=== PATIENT | female | born 1940 | race Caucasian/White ===

== ENCOUNTER 2019-05-30 18:55 | Inpatient (IN) | payer MEDICARE ==
[~2019-05-30] VITALS: Ht 157.5 cm; Wt 64.1 kg
--- NOTE | 2019-05-30 19:00 | NUR ---
LACTATED RINGERS 1L, WITH KCL 20MEQ INFUSING ON ARRIVAL. EDP KENENTH STATES TO CONTINUE INFUSION.
--- NOTE | 2019-05-30 19:03 | NUR ---
ABNORMAL LABS FROM [place]: WBC 21.4, LACTIC ACID 25.3, POTASSIUM 3.2, AMYLASE 1522, LIPASE 62208
--- NOTE | 2019-05-30 20:15 | NUR ---
PT SLEEPING ON BED. NO S/S OF ACUTE DISTRESS NOTED.
[2019-05-30 20:21] LABS: HEMATOCRIT 33.7 % (36.0-48.0); HEMOGLOBIN 10.9 g/dL (12-16); MCH 26.8 pg (26.0-34.0); MCHC 32.3 g/dL (31.0-37.0); MEAN PLATELET VOLUME 8.7 fL (7.4-10.4); PLATELET COUNT 335 10x3/uL (130-400); RBC 4.06 10x6/uL (4.00-5.40); RDW 14.5 % (11.5-14.5)
[2019-05-30 20:47] LABS: ANION GAP 10.3 mmol/L (8-16); CALCIUM 8.4 mg/dL (8.5-10.1); CARBON DIOXIDE 31.7 mmol/L (21.0-32.0); CREATININE - SERUM 0.9 mg/dL (0.6-1.3)
[2019-05-30 20:48] VITALS: BP 169/57
[2019-05-30 20:51] LABS: ALBUMIN 2.6 g/dL (3.4-5.0); BILIRUBIN - TOTAL 2.55 mg/dL (0.2-1.3); PROTEIN - SERUM 5.8 g/dL (6.4-8.2)
[2019-05-30 21:01] LABS: HYPOCHROMASIA 1+; LYMPHOCYTES 9 % (15-50); MONOCYTES 3 % (2-11); NEUTROPHILS 88 % (40-80); PLATELET ESTIMATE NORMAL
--- NOTE | 2019-05-30 21:45 | NUR ---
PT SLEEPING ON BED. NO S/S OF ACUTE DISTRESS NOTED.
--- NOTE | 2019-05-30 23:06 | NUR ---
SMALL, SOFT BROWN BM NOTED. PT CLEANED, NEW BRIEF PLACED ON PT.
--- NOTE | 2019-05-30 23:30 | NUR ---
ADMITTED TO ROOM FROM ER ALERT SPEECH GARBLED, ABLE TO FOLLOW DIRECTIONS, SEE ASSESSMENT, CALL LIGHT IN REACH, FALL PRECAUTIONS IN PLACE
[2019-05-31] VITALS (7 sets, daily range): BP systolic 122–147; BP diastolic 42–70; Ht 157.5 cm; Wt 64.1 kg
[2019-05-31 06:54] LABS: BASOPHILS 0.2 % (0-2); EOSINOPHILS 0.2 % (0-7); HEMATOCRIT 31.6 % (36.0-48.0); HEMOGLOBIN 9.9 g/dL (12-16); IMMATURE GRANULOCYTES 0.3 % (0-5); LYMPHOCYTES 12.3 % (15-50); MCH 26.1 pg (26.0-34.0); MCHC 31.3 g/dL (31.0-37.0); MCV 83.4 fL (80.0-100.0); MEAN PLATELET VOLUME 9.3 fL (7.4-10.4); MONOCYTES 5.4 % (2-11); NEUTROPHILS 81.6 % (40-80); PLATELET COUNT 328 10x3/uL (130-400); RBC 3.79 10x6/uL (4.00-5.40); RDW 14.6 % (11.5-14.5)
[2019-05-31 07:05] LABS: % SATURATION 16 % (15-55); IRON 35 ug/dl (35-150); TOTAL IRON BIND CAPACITY 218 ug/dl (260-445); UNSAT IRON BIND CAPACITY 183 ug/dl (150-375)
[2019-05-31 07:09] LABS: APTT 31.6 SECONDS (22.8-39.4); INR 1.24 (0.85-1.17); PROTIME 15.1 SECONDS (11.6-15.0)
[2019-05-31 07:13] LABS: WBC 11.9 10x3/uL (4.8-10.8)
--- NOTE | 2019-05-31 07:44 | NUR ---
PT RESTING IN BED WITH EYES CLOSED, BREATHING EVEN AND NONLABORED WITH NO S/S OF DISTRESS. IV LOCATED TO LEFT AC RUNNING NS @ 100. WILL CONT TO MONITOR.
[2019-05-31 07:50] LABS: ALBUMIN 2.4 g/dL (3.4-5.0); ALKALINE PHOSPHATASE 188 U/L (46-116); ALT (SGPT) 148 U/L (10-68); CALC OSMOLALITY 285 mosm/kg (275-300); CALCIUM 8.2 mg/dL (8.5-10.1); CARBON DIOXIDE 29.3 mmol/L (21.0-32.0); CHLORIDE - SERUM 106 mmol/L (98-107); CHOL - HDL RATIO 3.1 ratio (2.3-4.1); CHOLESTEROL, TOTAL 149 mg/dL (0-200); CREATININE - SERUM 0.8 mg/dL (0.6-1.3); FERRITIN 49 ng/mL (3-244); GLUCOSE 94 mg/dL (74-106); HDL CHOLESTEROL 48 mg/dL (32-96); LDL CHOLESTEROL 88 mg/dL (0-100); LDL-HDL RATIO 1.8 ratio (1.5-3.5); MAGNESIUM - SERUM 1.8 mg/dL (1.8-2.4); PHOSPHOROUS 2.9 mg/dL (2.5-4.9); POTASSIUM - SERUM 3.6 mmol/L (3.5-5.1); PROTEIN - SERUM 5.3 g/dL (6.4-8.2); SODIUM 143 mmol/L (136-145); TRIGLYCERIDE 69 mg/dL (30-200); UREA NITROGEN 14 mg/dL (7-18); eGFR NON AFRICAN AMERICAN 73 mL/min (90-120)
--- NOTE | 2019-05-31 08:43 | NUR ---
PT PULLED OUT IV, WILL RESITE TO NEW LOCATION.
--- NOTE | 2019-05-31 10:59 | NUR ---
ATTEMPTED TO START NEW IV , PT PULLED OUT IMMEDIATELY, SLAPPED AT ME AND TOLD ME TO "GO TO HELL". WILL ATTEMPT TO START ANOTHER SHORTLY AFTER PT CALMS DOWN.
--- NOTE | 2019-05-31 12:35 | NUR ---
PT HAS PORT, SPOKE W/ RAIN DESAI APN ABOUT PUTTING IN ORDER FOR ME TO ACCESS IT. WILL CONT TO MONITOR.
[2019-05-31] MEDS ORDERED: CARAFATE1 G PO (14:53)
[2019-05-31] MEDS ORDERED: SENNA LAXATIVE8.6 MG PO (14:55)
[2019-05-31] MEDS ORDERED: HYDROCHLOROTHIA25 MG PO (14:56)
[2019-05-31] MEDS ORDERED: MIRALAX17 GM PO ×2 (14:58→15:06)
[2019-05-31] MEDS ORDERED: PRENAVITE1 TAB PO (14:59)
[2019-05-31] MEDS ORDERED: K-TAB10 MEQ PO (14:59)
[2019-05-31] MEDS ORDERED: ZOFRAN4 MG PO (15:00)
[2019-05-31] MEDS ORDERED: DILTIAZEM 24HR180 M4 PO (15:03)
[2019-05-31] MEDS ORDERED: ULTRAM50 MG PO (15:04)
--- NOTE | 2019-05-31 19:47 | NUR ---
OT NOTE: PT REQUIRED MAX VERBAL CUES SECONDARY TO CONFUSION AND DECREASED SAFETY AWARENESS. PT COMPLETED BED MOB TASKS WITH SPV AND EXTENSIVE CUES FOR SAFETY. PT COMPLETED FACE WASH WITH SETUP. THANK YOU, UMER GERMAN
--- NOTE | 2019-05-31 20:00 | NUR ---
RESTING IN BED EYES CLOSED RESP UNLABORED, AROUSES EASLY TO VOICE, SPEECH GARBLED UNABLE TO UNDERSTAND, SEE SHIFT ASSESSMENT, CALL LIGHT IN REACH, FALL PRECAUTIONS IN PLACE
[2019-06-01 04:30] VITALS: BP 151/72
[2019-06-01 06:01] LABS: APPEARANCE CLEAR (CLEAR); BILIRUBIN NEGATIVE (NEGATIVE); COLOR DK YELLOW (YELLOW); GLUCOSE NEGATIVE (NEGATIVE); KETONE SMALL mg/dL (NEGATIVE); NITRITE NEGATIVE (NEGATIVE); PROTEIN 1+ mg/dL (NEGATIVE); UROBILINOGEN NORMAL (NORMAL)
[2019-06-01 06:02] LABS: BACTERIA FEW /hpf (NEGATIVE); EPITHELIAL CELLS 0-5 /hpf (0-5); RED CELLS - URINE 0-5 /hpf (0-5); WHITE CELLS - URINE 0-5 /hpf (NEGATIVE)
[2019-06-01 08:40] VITALS: BP 133/50
[2019-06-01 09:42] LABS: BASOPHILS 0.6 % (0-2); EOSINOPHILS 1.5 % (0-7); HEMATOCRIT 31.3 % (36.0-48.0); HEMOGLOBIN 9.4 g/dL (12-16); IMMATURE GRANULOCYTES 0.8 % (0-5); LYMPHOCYTES 19.4 % (15-50); MCH 25.9 pg (26.0-34.0); MEAN PLATELET VOLUME 9.3 fL (7.4-10.4); NEUTROPHILS 70.7 % (40-80); RBC 3.63 10x6/uL (4.00-5.40); RDW 14.6 % (11.5-14.5)
[2019-06-01 09:58] LABS: ALBUMIN 2.1 g/dL (3.4-5.0); ALKALINE PHOSPHATASE 133 U/L (46-116); BILIRUBIN - DIRECT 0.13 mg/dL (0.00-0.30); BILIRUBIN - INDIRECT 0.23 mg/dL (0.00-1.00); BILIRUBIN - TOTAL 0.36 mg/dL (0.2-1.3); CALC OSMOLALITY 284 mosm/kg (275-300); CARBON DIOXIDE 25.8 mmol/L (21.0-32.0); CHLORIDE - SERUM 108 mmol/L (98-107); CREATININE - SERUM 0.6 mg/dL (0.6-1.3); GLUCOSE 76 mg/dL (74-106); MAGNESIUM - SERUM 1.8 mg/dL (1.8-2.4); PHOSPHOROUS 2.6 mg/dL (2.5-4.9); POTASSIUM - SERUM 3.5 mmol/L (3.5-5.1); PROTEIN - SERUM 5.4 g/dL (6.4-8.2); SODIUM 143 mmol/L (136-145); UREA NITROGEN 16 mg/dL (7-18); eGFR NON AFRICAN AMERICAN > 90 mL/min (90-120)
[2019-06-01 10:00] LABS: ALT (SGPT) 78 U/L (10-68); LIPASE 1012 U/L (73-393)
[2019-06-01 10:02] LABS: MCV 86.2 fL (80.0-100.0); PLATELET COUNT 239 10x3/uL (130-400); WBC 6.6 10x3/uL (4.8-10.8)
--- NOTE | 2019-06-01 11:59 | MORECARE ---
CASE MANAGEMENT DISCHARGE SUMMARY PATIENT: OLIVER CARBONE UNIT: [id number] ADM DATE: 05/30/19 AGE: 78 : 38 SEX: F ROOM/BED: D.2201 AUTHOR: KIMBERLEY GOLDBERG PHYSICIAN: REFERRING PHYSICIAN: CHARITY DAMIAN MD DATE OF SERVICE: 06/01/19 Discharge Plan Patient Name: OLIVER CARBONE Facility: [facility]:[place] : 1940 Planned Disposition: Nursing Facility [facility] Cert Anticipated Discharge Date: Discharge Date: Expected LOS: Initial Reviewer: [email or web address] Initial Review Date: 05/30/2019 Generated: 06/01/19 12:59 pm Comments DCP- Discharge Planning Updated by [email or web address]: Alida Madden on 06/01/19 10:[address] Patient Name: OLIVER CARBONE Admission Status: ER Accout number: [id number] Admission Date: 05-30-2019 : 1940 Admission Diagnosis: Attending: CHARITY ALVARADO Current LOS: 2 Anticipated DC Date: Planned Disposition: Nursing Facility [facility] Cert Primary Insurance: MEDICARE A & B Discharge Planning Comments: Patient was a transfer for a higher level of care from [facility]. She is a resident at [facility] where I anticipate her to be discharged back there when stable. Patient is unable to answer questions for me. I received her sister's number from the nurse. Mary Ann [phone]. CM will attempt to call her for DC planning. Box Repairer: Alida Madden DCPIA - Discharge Planning Initial Assessment Updated by [email or web address]: Alida Madden on 06/01/19 11:56 am * PCP [facility] in [place] * Pharmacy [facility] in [place] * Facility Name [facility] in [place] * ADLs Total Dependent * List name and contact numbers for known caregivers / representatives who currently or will assist patient after discharge: Mary Ann (sister) [phone] * Additional services required to return to the preadmission environment? No * Can the patient safely return to the preadmission environment? Yes Patient Name: OLIVER CARBONE Page [id number] at 1159 All edits/amendments must be made on the electronic document DICTATION DATE: 06/01/191158 SANDBLASTER PAINT SPRAYER: RONEN 06/01/19 115 RPT#: [id number] DC DATE: STATUS: ADM IN [facility] [address] [place] [address] END OF REPORT
[2019-06-01 12:40] VITALS: BP 132/58
--- NOTE | 2019-06-01 13:55 | NUR ---
CALLED ENA. PATIENTS SISTER TO GET DANIELLE BLACKWELL [facility] PHONE NUMBER SINCE NONE OF OUR PAPERWORK HAS THE PHONE NUMBER. ATTEMPTING TO CALL RISHI NOW. NO RESPONSE. WILL TRY AGAIN LATER.
--- NOTE | 2019-06-01 14:34 | NUR ---
RISHI DAILEY Cam NUMBER IS [phone]. NUMBER ATTAINED FROM [facility]. CONSENT OBTAINED VERBALLY BY MYSELF AND Caty LYNN LPN.
--- NOTE | 2019-06-01 15:12 | NUR ---
OT NOTE: ATTEMPTED BED MOB, HOWEVER, PT UNABLE TO FOLLOW COMMANDS. PT HAD BEEN GETTING OUT OF BED MOST OF THE DAY YESTERDAY, BUT PT APPEARS FEARFUL AND SHE IS CONFUSED, SO SHE IS RESISTANT TO ATTEMPTS TO MOVE. UNABLE TO PERFORM GROOMING TASKS. PT IS INCONT OF B AND B. SUN BORJAS, OTR/L
--- NOTE | 2019-06-01 15:42 | NUR ---
OT NOTE: PT REQUIRED MAX A WITH BED MOB BUT IS ABLE TO FUNCTION AT A HIGHER LEVEL. PT EXHIBITED DECREASED FUNCTION SECONDARY TO COG ISSUES. PT COMPLETED UB HYGIENE TASKS WITH MOD A. THANK YOU, UMER GERMAN
[2019-06-01 16:06] VITALS: BP 143/53
--- NOTE | 2019-06-01 19:51 | NUR ---
PATIENT IN BED RESTING ALERT WITH CONFUSION NOTED. POSIE ALARM IN PLACE . NS RUNNING AT 125ML/HR TO RIGHT INFUSEA PORT. O2 AT 2L VIA N/C. CALL LIGHT IN REACH. NO NEEDS NOTED OR STATED AT THIS TIME.
[2019-06-01 20:00] VITALS: BP 135/55
--- NOTE | 2019-06-01 22:56 | NUR ---
NO TELEMETRY AVAILABLE AT THIS TIME
[2019-06-02] VITALS (9 sets, daily range): BP systolic 130–171; BP diastolic 43–76
[2019-06-02 06:06] LABS: BASOPHILS 0.5 % (0-2); EOSINOPHILS 3.5 % (0-7); HEMATOCRIT 31.6 % (36.0-48.0); HEMOGLOBIN 9.8 g/dL (12-16); LYMPHOCYTES 21.8 % (15-50); MCH 26.1 pg (26.0-34.0); MCV 84.3 fL (80.0-100.0); MEAN PLATELET VOLUME 9.4 fL (7.4-10.4); MONOCYTES 8.4 % (2-11); NEUTROPHILS 64.8 % (40-80); RBC 3.75 10x6/uL (4.00-5.40); RDW 14.3 % (11.5-14.5); WBC 5.9 10x3/uL (4.8-10.8)
[2019-06-02 06:09] LABS: PLATELET COUNT 299 10x3/uL (130-400)
[2019-06-02 06:35] LABS: ALBUMIN 2.3 g/dL (3.4-5.0); ALKALINE PHOSPHATASE 125 U/L (46-116); ALT (SGPT) 61 U/L (10-68); BILIRUBIN - DIRECT 0.17 mg/dL (0.00-0.30); BILIRUBIN - TOTAL 0.37 mg/dL (0.2-1.3); CALCIUM 7.9 mg/dL (8.5-10.1); CARBON DIOXIDE 23.7 mmol/L (21.0-32.0); CHLORIDE - SERUM 104 mmol/L (98-107); CREATININE - SERUM 0.6 mg/dL (0.6-1.3); GLUCOSE 72 mg/dL (74-106); PHOSPHOROUS 2.8 mg/dL (2.5-4.9); POTASSIUM - SERUM 3.8 mmol/L (3.5-5.1); PROTEIN - SERUM 5.2 g/dL (6.4-8.2); SODIUM 139 mmol/L (136-145); eGFR NON AFRICAN AMERICAN > 90 mL/min (90-120)
[2019-06-02 06:37] LABS: CALC OSMOLALITY 275 mosm/kg (275-300); UREA NITROGEN 9 mg/dL (7-18)
--- NOTE | 2019-06-02 16:07 | NUR ---
PT RECEIVED. TO ICU AT THIS TIME. VSS. PT ON 4L NC SAT 96% RR 16 NON LABORED. PT CONFUSED X2. FAMILY AT BEDSIDE GIVEN UDPATE. HR 56 SINUS FRANKLYN. BP 114/67 WILL CONTINUE TO MONITO R
--- NOTE | 2019-06-02 18:00 | NUR ---
PT DEMENTED AT THIS TIME. NO FAMILY IN WAITING AREA. PT REMOVING ICU EQUIPMENT ATTEMPT TO REORIENT WITH NO AFFECT. PT ON RA O2 SAT 98% RR 16 NON LABORED.PT BEGGING NOT TO BE LEFT ALONE AT THIS TIME. PT UP OOB TO WHEELCHAIR AND PLACED AT NURSES STATION, PT PREOCCUPIED WITH FOLDING TOWELS AT WASHCLOTHES AT THIS TIME. WILL CONTINUE TO MONITOR
--- NOTE | 2019-06-02 19:00 | NUR ---
REPORT REC'D, ASSUMED PT'S CARE. ASSESSMENT COMPLETED PER FLOWSHEETS. PT SITTING IN WHEELCHER AT NURSING STATION, DENIES ANY DISCOMFORT AT THIS TIME. ABD INCISION INTACT. JPDRAIN INTACT. PPP. WILL CONT TO MONITOR.
--- NOTE | 2019-06-02 20:20 | NUR ---
TRANSF PT FROM CHAIR TO BED. PT WILLIAM WELL. STERILE PROCESSING TECHNICIAN ATTACHED. PT CONT CONFUSED. REORIENTED WITHOUT RESULTS. BED ALARM ON. CALL LIGHT IN REACH. CPOC.
--- NOTE | 2019-06-02 21:00 | NUR ---
ASSISSTED TO BSC, VOIDS WITHOUT DIFFIC. PT WILLIAM WELL.
--- NOTE | 2019-06-02 23:00 | NUR ---
REASSESSMENT COMPLETED,SEE FLOWSHEATHS FOR ALL FINDINGS. NO ACUTE CHANGES NOTED IN PT'S STATUS. VSS. CONT TO MONITOR.
[2019-06-03] VITALS (19 sets, daily range): BP systolic 55–161; BP diastolic 46–100
--- NOTE | 2019-06-03 01:00 | NUR ---
PT INCONTINENT OF URINE. KENNETH CARE AND BED PAD CHANGED. REPOSITIONED FOR COMFORT. BED ALARM ON. CPOC.
--- NOTE | 2019-06-03 02:10 | NUR ---
ASSITED TO BSC, PT VOIDS WITHOUT DIFFIC. BACK TO BED. BED ALARM ON. CALL LIGHT IN REACH. CPOC.
--- NOTE | 2019-06-03 03:00 | NUR ---
REASSESSMENT COMPLETED PER FLOWSHEETS. NO ACUTE SIGNS OF DISTRESS NOTED AT THIS TIME. VSS. CPOC.
--- NOTE | 2019-06-03 03:15 | NUR ---
REC'D TO CARE, NO CHANGES FROM PREV ASSESSMENT. PT PLESANTLY CONFUSED, VSS. NO SIGN OF DISTRESS. ALARMS ON .
[2019-06-03 03:17] LABS: BASOPHILS 0.3 % (0-2); EOSINOPHILS 1.9 % (0-7); HEMATOCRIT 30.2 % (36.0-48.0); HEMOGLOBIN 9.6 g/dL (12-16); IMMATURE GRANULOCYTES 0.6 % (0-5); LYMPHOCYTES 11.5 % (15-50); MCH 26.2 pg (26.0-34.0); MCHC 31.8 g/dL (31.0-37.0); MCV 82.5 fL (80.0-100.0); MONOCYTES 6.3 % (2-11); NEUTROPHILS 79.4 % (40-80); PLATELET COUNT 312 10x3/uL (130-400); RBC 3.66 10x6/uL (4.00-5.40); RDW 14.2 % (11.5-14.5)
[2019-06-03 03:20] LABS: WBC 9.3 10x3/uL (4.8-10.8)
[2019-06-03 03:35] LABS: ANION GAP 12.4 mmol/L (8-16); CALCIUM 8.4 mg/dL (8.5-10.1); MAGNESIUM - SERUM 1.6 mg/dL (1.8-2.4); PHOSPHOROUS 2.5 mg/dL (2.5-4.9); POTASSIUM - SERUM 3.4 mmol/L (3.5-5.1)
[2019-06-03 03:36] LABS: CREATININE - SERUM 0.8 mg/dL (0.6-1.3)
--- NOTE | 2019-06-03 06:15 | NUR ---
COMPLETE BATH AND LINEN CHANGE DONE. PT UP IN CHAIR WITH CHAIR ALARM ON. ALARMS ON AND C/L IN REACH.
--- NOTE | 2019-06-03 07:00 | NUR ---
PT SITTING IN WHEELCHAIR AT BEDSIDE. SHIFT ASSESSMENT PERFORMED. VSS AND WNL. CHAIR ALARM ON AND TESTED. DENIES ANY NEEDS AT THIS TIME, WILL CONT TO FOLLOW POC
--- NOTE | 2019-06-03 08:04 | NUR ---
PT TRYING TO STAND UP OUT OF WHEELCHAIR. PUSHED PT AROUND ICU IN WHEELCHAIR AND RETURNED PT TO HER ROOM. PT CALM AND FOLDING WASHCLOTHS ON HER BEDSIDE TABLE. DENIES ANY NEEDS AT THIS TIME, CHAIR ALARM ON AND TESTED. WILL CONT TO FOLLOW POC
--- NOTE | 2019-06-03 08:52 | NUR ---
Nutrition follow-up: Pt s/p lap antonino 06/02, ERCP was scheduled for 06/03 Remains NPO x 6 days Labs reviewed Wt: 141# Pt confused per nursing due to dementia Pt now assessed with severe malnutrition of acute illness R/T pancreatitis AEB: 1. < 50% intake of estimated energy needs for > 5 days 2. ~7% weight loss in 6 days (152# on admit - now 141#) Recommend starting ProcalAmine PPN today @ 60 ml/hr due to severe malnutrition. Would continue to run ProcalAmine even if diet resumes due to pts debilitated state. RDN following.
--- NOTE | 2019-06-03 09:55 | NUR ---
PT SITTING IN WHEELCHAIR AT BEDSIDE FOLDING WASHCLOTHS. DENIES ANY NEEDS AT THIS TIME. CHAIR ALARM ON AND TESTED. WILL CONT TO FOLLOW POC
--- NOTE | 2019-06-03 10:30 | NUR ---
ASSISTED PT TO BEDSIDE COMMODE AND BACK TO WHEELCHAIR. DENIES ANY NEEDS AT THIS TIME, CHAIR ALARM ON. WILL CONT TO FOLLOW POC
--- NOTE | 2019-06-03 11:00 | NUR ---
PT SITTING IN WHEELCHAIR AT NURSING STATION FOLDING WASHCLOTHS. CHAIR ALARM ON. DENIES ANY NEEDS AT THIS TIME, WILL CONT TO FOLLOW POC
--- NOTE | 2019-06-03 13:00 | NUR ---
PT SITTING IN WHEELCHAIR AT NURSING STATION FOLDING WASHCLOTHS. CHAIR ALARM ON AND TESTED. DENIES ANY NEEDS AT THIS TIME, WILL CONT TO FOLLOW POC
--- NOTE | 2019-06-03 14:00 | NUR ---
ASSISTED PT TO BEDSIDE COMMODE AND BACK TO CHAIR. CHAIR ALARM ON AND TESTED. DENIES ANY NEEDS AT THIS TIME. CALL LIGHT WITHIN REACH. WILL CONT TO FOLLOW POC
--- NOTE | 2019-06-03 15:00 | NUR ---
PT TRANSFERRED INTO BED X1 ASSIST. BED ALARM ON AND TESTED. VSS AND WNL. DENIES ANY NEEDS AT THIS TIME, WILL CONT TO FOLLOW POC
--- NOTE | 2019-06-03 15:19 | NUR ---
PT LEFT FOR ERCP
--- NOTE | 2019-06-03 16:29 | NUR ---
FLUORO TIME: 47 SECONDS. CONTRAST: 5 ML
--- NOTE | 2019-06-03 17:00 | NUR ---
PT RETURNED TO ICU FROM ERCP. VSS AND WNL. BED ALARM ON AND TESTED. WILL CONT TO FOLLOW POC
--- NOTE | 2019-06-03 17:15 | NUR ---
PT RESTING IN BED, VSS AND WNL. BED ALARM ON AND TESTED. DENIES ANY NEEDS AT THIS TIME, WILL CONT TO FOLLOW POC
--- NOTE | 2019-06-03 17:30 | NUR ---
PT RESTING IN BED ASLEEP. VSS AND WNL. BED ALARM ON. WILL CONT TO FOLLOW POC
--- NOTE | 2019-06-03 17:38 | NUR ---
PER , OK FOR PT TO TRANSFER TO FLOOR
--- NOTE | 2019-06-03 17:45 | NUR ---
PT RESTING IN BED ASLEEP. VSS AND WNL. BED ALARM ON AND TESTED. [facility] PT CAN TRANSFER TO ROOM 2226.
--- NOTE | 2019-06-03 18:00 | NUR ---
REPORT CALLED TO MED SURG. PT RESTING IN BED ASLEEP. VSS AND WNL. BED ALARM ON AND TESTED. WILL CONT TO FOLLOW POC
--- NOTE | 2019-06-03 19:15 | NUR ---
PT ARRIVED ON UNIT VIA WHEELCHAIR ESCORTED BY 2 ICU NURSES. POSITIONED IN FIORDALIZA BED FOR COMFORT AND SECURED ALL FLAPS.
--- NOTE | 2019-06-03 19:15 | NUR ---
TRANSFERRED FROM ICU VIA WHEELCHAIR. POA: RISHI ELIZABETHAR [phone] (CELL) [phone] (BUINESS - CALL 1ST DURING BUSINESS HOURS)
--- NOTE | 2019-06-03 20:59 | NUR ---
RE-STARTED IV FLUIDS PER ORDER. HS MEDICATIONS GIVEN TO INCLUDE TRAMADOL, PT C/O ABDOMINAL PAIN.
--- NOTE | 2019-06-03 21:10 | NUR ---
ALL LINENS AND GOWN CHANGED DUE TO INCONTINENCE OF URINE.
[2019-06-04 00:57] VITALS: BP 117/69
--- NOTE | 2019-06-04 04:45 | NUR ---
MARISABEL BLOOD FROM [facility] FOR AM LABS AND DELIVERED TO PIPE SMOKING MACHINE OPERATOR.
[2019-06-04 05:00] VITALS: BP 130/41
[2019-06-04 06:16] LABS: BASOPHILS 0.5 % (0-2); EOSINOPHILS 6.4 % (0-7); HEMATOCRIT 28.4 % (36.0-48.0); HEMOGLOBIN 8.9 g/dL (12-16); IMMATURE GRANULOCYTES 0.6 % (0-5); MCH 26.2 pg (26.0-34.0); MCHC 31.3 g/dL (31.0-37.0); MCV 83.5 fL (80.0-100.0); MEAN PLATELET VOLUME 9.2 fL (7.4-10.4); MONOCYTES 10.1 % (2-11); NEUTROPHILS 68.4 % (40-80); PLATELET COUNT 277 10x3/uL (130-400); RDW 14.6 % (11.5-14.5)
[2019-06-04 06:23] LABS: WBC 6.2 10x3/uL (4.8-10.8)
--- NOTE | 2019-06-04 06:24 | NUR ---
PT RESTED WELL OVERNIGHT EXCEPT YELLED AND RESISTED CARE WHEN SHE NEEDED CHANGED DUE TO INCONTINENCE.
[2019-06-04 06:38] LABS: CALC OSMOLALITY 274 mosm/kg (275-300); CALCIUM 7.8 mg/dL (8.5-10.1); CHLORIDE - SERUM 104 mmol/L (98-107); CREATININE - SERUM 0.6 mg/dL (0.6-1.3); GLUCOSE 85 mg/dL (74-106); MAGNESIUM - SERUM 1.7 mg/dL (1.8-2.4); PHOSPHOROUS 2.9 mg/dL (2.5-4.9); SODIUM 140 mmol/L (136-145); eGFR NON AFRICAN AMERICAN > 90 mL/min (90-120)
[2019-06-04 06:43] LABS: UREA NITROGEN 3 mg/dL (7-18)
--- NOTE | 2019-06-04 07:10 | NUR ---
PT RESTING IN BED. NO SIGNS OF DISTRESS. IV TO PORT NO REDNESS OR TENDERNESS. IN FIORDALIZA BED. SIDE OPEN TO FOR FAMILY STATED IF PT TRIED GETTING UP NEEDED TO CLOSE SIDE. STATED UNDERSTOOD. DENIES ANY FURTHER NEED AT THIS TIME. CALL LIGHT IN REACH. BED LOW POSITION.
[2019-06-04 08:17] VITALS: BP 137/59
[2019-06-04 08:26] LABS: ALBUMIN 2.3 g/dL (3.4-5.0); BILIRUBIN - DIRECT 1.27 mg/dL (0.00-0.30); BILIRUBIN - INDIRECT 0.4 mg/dL (0.00-1.00); BILIRUBIN - TOTAL 1.67 mg/dL (0.2-1.3); PROTEIN - SERUM 5.3 g/dL (6.4-8.2)
--- NOTE | 2019-06-04 11:54 | MORECARE ---
CASE MANAGEMENT DISCHARGE SUMMARY PATIENT: OLIVER CARBONE UNIT: [id number] ADM DATE: 05/30/19 AGE: 78 : 38 SEX: F ROOM/BED: D.2226 AUTHOR: KIMBERLEY GODLBERG PHYSICIAN: REFERRING PHYSICIAN: CHARITY DAMIAN MD DATE OF SERVICE: 06/04/19 Discharge Plan Patient Name: OLIVER CARBONE [facility] : 1940 Planned Disposition: Nursing Facility [facility] Cert Anticipated Discharge Date: Discharge Date: Expected LOS: Initial Reviewer: [email or web address] Initial Review Date: 05/30/2019 Generated: 06/04/19 12:54 pm Comments DCP- Discharge Planning Updated by [email or web address]: Abbey Rodriguez on 06/04/19 10:[address] Patient Name: OLIVER CARBONE Admission Status: ER Accout number: [id number] Admission Date: 05-30-2019 : 1940 Admission Diagnosis: Attending: CHARITY ALVARADO Current LOS: 5 Anticipated DC Date: Planned Disposition: Nursing Facility [facility] Cert Primary Insurance: MEDICARE A & B Discharge Planning Comments: SPOKE WITH LOYDA RN AT [facility] IN [place] ABOUT PATIENT POSSIBLY DC TODAY. LOYDA SPOKE WITH HER DON AND THEY CAN'T ACCEPT PATIENT'S BACK OVER THE WEEKEND. THE DON WILL BE CALLING US THURSDAY TO SET UP TRANSPORT FOR THE PATIENT IF READY TO DC. [facility] HOME PHONE NUMBER IS [phone]. Forensic Audit Expert: Abbey Rodriguez DCP- Discharge Planning Updated by [id number]: Alida Madden on 06/01/19 10:[address] Patient Name: OLIVER CARBONE Admission Status: ER Accout number: [id number] Admission Date: 05-30-2019 : 1940 Admission Diagnosis: Attending: CHARITY ALVARADO Current LOS: 2 Anticipated DC Date: Planned Disposition: Nursing Facility [facility] Cert Primary Insurance: MEDICARE A & B Discharge Planning Comments: Patient was a transfer for a higher level of care from [facility]. She is a resident at [facility] where I anticipate her to be discharged back there when stable. Patient is unable to answer questions for me. I received her sister's number from the nurse. Mary Ann [phone]. CM will attempt to call her for DC planning. Forensic Audit Expert: Alida Madden DCPIA - Discharge Planning Initial Assessment Updated by [id number]: Alida Madden on 06/01/19 11:56 am * PCP [facility] in [place] * Pharmacy [facility] in [place] * Facility Name [facility] in [place] * ADLs Total Dependent * List name and contact numbers for known caregivers / representatives who currently or will assist patient after discharge: Mary Ann (sister) [phone] * Additional services required to return to the preadmission environment? No * Can the patient safely return to the preadmission environment? Yes Last DP export: 06/01/19 10:59 Patient Name: OLIVER CARBONE Page [id number] at 1154 All edits/amendments must be made on the electronic document DICTATION DATE: 06/04/19 115 SOCIALLY RESPONSIBLE INVESTMENT ADVISER: RONEN 06/04/19 1154 RPT#: [id number] DC DATE: STATUS: ADM IN [facility] [address] [place] [address] END OF REPORT
[2019-06-04 12:00] VITALS: BP 120/78
--- NOTE | 2019-06-04 13:11 | NUR ---
PATIENT ALVARO DRAIN REMOVED WITH SMALL AMOUNT OF PAIN AT THIS TIME. DRESSING PLACED OVER DRAIN SITE. ENCLOSURE BED ZIPPED BACK UP. PATIENT IV INTACT. CALL LIGHT WITHIN REACH.
--- NOTE | 2019-06-04 15:22 | NUR ---
DISCHARGE INSTRUCTIONS GIVEN. IV DEACCESSED BY RN. LEFT WITH HOSPITAL STAFF TO GO TO INPATIENT PSYCH.
--- NOTE | 2019-06-05 11:48 | CN ---
PATIENT NAME:OLIVER CARBONE MEDICAL RECORD: [id number] : [birth year] LOCATION:D.MS [address] ADMIT DATE: 05/30/19 ACCOUNT: [id number] CONSULTING PHYSICIAN: TIFF DESAI MD REFERRING PHYSICIAN: CHARITY DAMIAN MD DATE OF CONSULTATION: 06/04/2019 PSYCHIATRIC CONSULTATION IDENTIFYING DATA: The patient is 78 years old and she is admitted to the hospital on a voluntary basis. CHIEF COMPLAINT: None. HISTORY OF PRESENT ILLNESS: The patient was referred to us by the [facility]. Apparently, she had chololithiasis, pancreatitis and a urinary tract infection. She was transferred here for a higher level of care. The patient has been treated for these conditions and is scheduled to be returned to the [facility] soon. Unfortunately, she has become seriously confused and agitated. She is currently in a [place] bed and has been very disruptive and is only oriented to person. MENTAL STATUS EXAMINATION: The patient is sleepy, but arousable. She is extremely confused and again only oriented to person. She is unable to cooperate with memory, concentration, or abstraction testing, but clearly they are impaired. ASSESSMENT: Major neurocognitive disorder of the Alzheimer's type with behavioral disturbances. PLAN: The patient is in need of behavioral stabilization. I would recommend she be transferred to the behavioral unit as soon as it is practical to do so. TRANSINT:[id number] Voice Confirmation ID: [id number] DOCUMENT ID: [id number] TIFF DESAI MD at 1148 CC: [id number] DICTATION DATE: 06/04/19 1336 METAL LEAF LAYER: 06/04/19 1420 DIS IN 06/04/19 [facility] [address] [place] [address]
--- NOTE | 2019-06-05 14:37 | MORECARE ---
CASE MANAGEMENT DISCHARGE SUMMARY PATIENT: OLIVER CARBONE UNIT: [id number] ADM DATE: 05/30/19 AGE: 78 : 38 SEX: F ROOM/BED: D.2226 AUTHOR: KIMBERLEY GOLDBERG PHYSICIAN: REFERRING PHYSICIAN: CHARITY DAMIAN MD DATE OF SERVICE: 06/05/19 Discharge Plan Patient Name: OLIVER CARBONE Facility: [facility]:[place] : 1940 Planned Disposition: Nursing Facility [facility] Cert Anticipated Discharge Date: Discharge Date: 06/04/2019 Expected LOS: Initial Reviewer: [id number] Initial Review Date: 05/30/2019 Generated: 06/05/19 3:36 pm Comments DCP- Discharge Planning Updated by [id number]: Abbey Rodriguez on 06/05/19 1:[address] Patient Name: OLIVER CARBONE Encounter No: [id number] : 1940 Primary Insurance: MEDICARE A & B Anticipated DC Date: Planned Disposition: Nursing Facility [facility] Cert External Planned Provider: : DCP follow-up note: PATIENT WAS ADMITTED TO [facility] AND I BELIEVE THE PLAN IS TO DC TO [facility] ON THURSDAY. Abbey Rodriguez DCP- Discharge Planning Updated by [email or web address]: Abbey Rodriguez on 06/04/19 10:[address] Patient Name: OLIVER CARBONE Admission Status: ER Accout number: [id number] Admission Date: 05-30-2019 : 1940 Admission Diagnosis: Attending: CHARITY ALVARADO Current LOS: 5 Anticipated DC Date: Planned Disposition: Nursing Facility [facility] Cert Primary Insurance: MEDICARE A & B Discharge Planning Comments: ANN SPOKE WITH REED SCALES AT [facility] IN [place] ABOUT PATIENT POSSIBLY DC TODAY. LOYDA SPOKE WITH HER DON AND THEY CAN'T ACCEPT PATIENT'S BACK OVER THE WEEKEND. THE DON WILL BE CALLING US THURSDAY TO SET UP TRANSPORT FOR THE PATIENT IF READY TO DC. [facility] PHONE NUMBER IS [phone]. Inspectors And Regulatory Officers: Abbey Rodriguez DCP- Discharge Planning Updated by [id number]: Alida Madden on 06/01/19 10:[address] Patient Name: OLIVER CARBONE Admission Status: ER Accout number: [id number] Admission Date: 05-30-2019 : 1940 Admission Diagnosis: Attending: CHARITY ALVARADO Current LOS: 2 Anticipated DC Date: Planned Disposition: Nursing Facility [facility] Primary Insurance: MEDICARE A & B Discharge Planning Comments: Patient was a transfer for a higher level of care from [facility]. She is a resident at [facility] where I anticipate her to be discharged back there when stable. Patient is unable to answer questions for me. I received her sister's number from the nurse. Mary Ann [phone]. CM will attempt to call her for DC planning. Inspectors And Regulatory Officers: Alida Madden DCPIA - Discharge Planning Initial Assessment Updated by [id number]: Alida Madden on 06/01/19 11:56 am * PCP [facility] in [place] * Pharmacy [facility] in [place] * Facility Name [facility] in [place] * ADLs Total Dependent * List name and contact numbers for known caregivers / representatives who currently or will assist patient after discharge: Mary Ann (sister) [phone] * Additional services required to return to the preadmission environment? No * Can the patient safely return to the preadmission environment? Yes Coverage Notice Reviewer: [id number] Melissa Rodriguez Notice Issued Date-Time: 06/04/2019 14:06 Notice Type: IM Discharge Notice Notice Delivered To: Family Member Relationship to Patient: Plugging Machine Operator Name: JUSTYN MOORE Delivery Method: HAND - Hand Delivered Ling Days: Prior Verbal Notification: Recipient Understood Notice: Yes Recipient Signature: Yes Med Rec Note Co-signed by Attending: Coverage Notice Comment: Last DP export: 06/04/19 10:54 Patient Name: OLIVER CARBONE Page 12132 at 1437 All edits/amendments must be made on the electronic document DICTATION DATE: 06/05/191435 SOLAR PHOTOVOLTAIC DESIGNER: RONEN 06/05/191435 RPT#: [id number] DC DATE:06/04/19 STATUS: DIS IN [place] [address] [place] [address] END OF REPORT
--- NOTE | 2019-06-14 13:37 | OP ---
PATIENT NAME: OLIVER CARBONE MEDICAL RECORD: [id number] :36 LOCATION:D.MS Orellana2226 ADMISSION DATE:05/30/19 SURGEON: MACK RODRIGUEZ MD DATE OF OPERATION: 06/02/2019 PREOPERATIVE DIAGNOSES: 1. Gallstone pancreatitis. 2. Dementia. 3. Acute cholecystitis. 4. Coronary artery disease. POSTOPERATIVE DIAGNOSES: 1. Gallstone pancreatitis. 2. Dementia. 3. Acute cholecystitis. 4. Coronary artery disease. PROCEDURE: 1. Laparoscopic cholecystectomy with intraoperative cholangiogram. 2. Fluoroscopic interpretation. SURGEON: Mack Rodriguez MD REPORT OF PROCEDURE: The patient's abdomen was prepped and draped in sterile fashion. A cutdown was made on the superior aspect of the umbilicus, 0 Vicryls were placed in the fascia bilaterally and the fascia was incised with 15-blade. I then bluntly entered the peritoneal cavity and placed a 12-mm Svetlana port. Under direct visualization, a 5 mm trocar was placed in the epigastrium and 2 more 5-mm trocars were placed in the right subcostal region. The gallbladder was grasped and elevated. It was noted to be distended and there was some acute inflammatory changes present near the infundibulum. We were able to dissect out the cystic duct and cystic artery. We placed clips on the duct proximally and made a ductotomy. We attempted to pass a cook cholangiocath and the first couple of passes actually went through the back wall of the cystic duct. We eventually were able to cannulate the cystic duct and performed an intraoperative cholangiogram. Using fluoroscopic guidance, we could see that there was contrast flowing through the cystic duct into the common duct and up into the hepatic ducts. There was no evidence of a leak anywhere and there was flow into the duodenum. There was a filling defect present near the ampulla, which appeared to be most consistent with a stone. We attempted to irrigate this out, but it did not move, so we discontinued this portion of the procedure. At this point, the catheter was removed and the cystic duct was clipped 3 times distally and ligated in standard fashion. The cystic artery was clipped proximally and distally and ligated then the gallbladder was taken off the liver bed using electrocautery. This was placed into an Endo Catch bag. Any bleeding from the liver bed was then treated with electrocautery. A 15 round Vikram drain was inserted through the right lateral subcostal trocar and laid to rest near the gallbladder fossa. This was sutured into place with a 2-0 nylon. At this point, the ports and insufflation were then removed and the gallbladder was taken out through the umbilicus. The umbilical fascia was closed with interrupted 0 Vicryls times 3. The wounds were then irrigated out with normal saline and infused with 10 mL of 0.25% Marcaine with epinephrine. The skin incision was closed with subcutaneous 5-0 Monocryl and dressed appropriately. COMPLICATIONS: None. OPERATIVE REPORT [id number] OLIVER CARBONE CONDITION: Stable. ANESTHESIA: General endotracheal and local. BLOOD LOSS: 30 mL. TRANSINT:[id number] Voice Confirmation ID: [id number] DOCUMENT ID: [id number] MACK RODRIGUEZ MD at 1337 CC: CHARITY DAMIAN MD and ANDI VIRGEN DO [id number] DICTATION DATE: 06/02/19 1439 BAND MACHINE OPERATOR: 06/02/19 1717 DIS IN 06/04/[address] [facility] [address] [place] [address]
== END 2019-06-04 15:24 | disposition short-term general hospital (02) | DRG 417 ==
LOC: D.ER 18:55 → D.MS 21:19 → D.ICU 21:19 → D.MS 06-03 19:13
PROVIDERS: Family Medicine; Surgery; ADMIT Family Medicine Adult Medicine; ATTEND Family Medicine Adult Medicine
PROC: 0FT44ZZ Resection of Gallbladder, Percutaneous Endoscopic Approach (ICD-10-PCS; principal; 2019-06-02 13:00)
DX: K85.10 Biliary acute pancreatitis without necrosis or infection (principal); K83.1 Obstruction of bile duct; N39.0 Urinary tract infection, site not specified; K83.09 Other cholangitis; K91.86 Retained cholelithiasis following cholecystectomy; I10 Essential (primary) hypertension; I25.10 Atherosclerotic heart disease of native coronary artery without angina pectoris; F03.90 Unspecified dementia, unspecified severity, without behavioral disturbance, psychotic disturbance, mood disturbance, and anxiety

== ENCOUNTER 2019-06-04 14:06 | Inpatient (IN) | payer MEDICARE ==
[~2019-06-04] VITALS: Ht 157.5 cm; Wt 69.1 kg
--- NOTE | ~2019-06-04 | DS ---
PATIENT:OLIVER CARBONE :[birth year] MEDICAL RECORD: [id number] DISCHARGE SUMMARY ADMISSION DATE: 06/04/19 DISCHARGE DATE: 06/15/19 IDENTIFYING DATA: The patient is 78 years old and she was admitted to the hospital on a voluntary basis because of agitation. The patient recently was admitted to the hospital secondary to cholelithiasis. She had been living in a custodial in [place], [place] and was transferred here for a higher level of care. She has an established diagnosis of dementia and after her surgery, she was quite confused, agitated, and unmanageable. She was subsequently transferred to the behavioral unit for evaluation and treatment. HOSPITAL COURSE: The patient was admitted to the behavioral unit and fully evaluated from both a medical, psychological, and social standpoint. She was found to have an advanced dementia and was treated with memory enhancing and mood stabilizing medications. She showed rapid improvement in her condition and was subsequently returned to the custodial. DISCHARGE DIAGNOSES: AXIS I: Major neurocognitive disorder of the Alzheimer's type with behavioral disturbances. AXIS II: None. AXIS III: Cholelithiasis, pancreatitis, non-Hodgkin's lymphoma, and hypertension. AXIS IV: Moderate. AXIS V: Global assessment of functioning is 30. PLAN: At the time of discharge, the patient was not acutely dangerous to herself or others. Her long-term prognosis is guarded. TRANSINT:[id number] Voice Confirmation ID: [id number] DOCUMENT ID: [id number] TIFF DESAI MD CC: [id number] DICTATION DATE: 06/20/19 1549 ENGAGEMENT QUALITY CONSULTANT: 06/20/19 2243 DIS IN 06/15/19 [id number] [place] [address]
[~2019-06-04 14:06] MED LIST: CARAFATE1 G PO; DILTIAZEM 24HR180 M4 PO; HYDROCHLOROTHIA25 MG PO; K-TAB10 MEQ PO; MIRALAX17 GM PO; PRENAVITE1 TAB PO; SENNA LAXATIVE8.6 MG PO; ULTRAM50 MG PO; ZOFRAN4 MG PO
--- NOTE | 2019-06-04 15:30 | NUR ---
The patient is admitted to group home from the med floor. She arrives via w/c with two staff at her side, her sister and her granddaughter. She is confused, but pleasant. She is status post lap antonino x 2 days. She has a bandaid on her upper abdomen. She has a bandaid over her right chest where she had a port access. Removed some of her EKG stickers. She has toenail fungus. She gave verbal consent to be here although she has a POA. Attempted to call the POA Clark Hines.
[2019-06-04 17:07] VITALS: BP 144/56; BMI 30.1
--- NOTE | 2019-06-04 17:52 | NUR ---
According to the patient's old chart from the med. floor she is a DNR.
--- NOTE | 2019-06-04 18:26 | NUR ---
Attempted to call POA, the phone is busy. Got verbal consent from the patient.
[2019-06-04 20:10] VITALS: BP 159/56
--- NOTE | 2019-06-04 21:05 | NUR ---
B.) PT IS ALERT AND ORIENTED TO SELF ONLY. SHE IS RECEIVED IN THE DAYROOM IN A NICKIE-CHAIR. SHE IS PLEASANT WITH STAFF AND PEERS. SHE DOES HAVE A NON PRODUCTIVE COUGH. I.) REDIRECT OFTEN. ENCOURAGED SPLINT, COUGH AND DEEP BREATH. R.) EASY TO REDIRECT. PT TOLERATED WELL. P.) WILL CONTINUE TO MONITOR.
--- NOTE | 2019-06-05 06:00 | NUR ---
ATTEMPTED TO CALL RISHI SANTOS FOR CONSENT TO TX. PT PHONE BUSY. WILL CONTINUE TO TRY.
[2019-06-05 06:31] LABS: LDL-HDL RATIO 2.4 ratio (1.5-3.5); THYROID STIMULATING HORMONE 2.11 uIU/mL (0.36-3.74)
[2019-06-05 08:00] VITALS: BP 160/55
[2019-06-05 09:00] VITALS: BP 160/55
--- NOTE | 2019-06-05 10:00 | NUR ---
RECEIVED PT. IN DINING ROOM FOR B'FAST, ALERT, CALM, CONFUSED. NO BEHAVIORAL ISSUES NOTED. MEDS ADMIN PER ORDERS WITH COMPLETE MED COMPLIANCE NOTED. COOPERATIVE WITH STAFF AND PLAN OF CARE. CONT POC DIRECTED.
[2019-06-05 20:00] VITALS: BP 92/28
--- NOTE | 2019-06-06 01:26 | NUR ---
B.) PT IS ALERT AND ORIENTED TO SELF ONLY. SHE TRANSFERS WITH LESS ASSISTANCE. SHE IS PLEASANT AND SOCIAL WITH PEERS AND STAFF. I.) REDIRECT OFTEN R.) EASY TO REDIRECT P.) WILL CONTINUE TO MONITOR.
[2019-06-06 10:37] VITALS: BP 142/57
[2019-06-06 13:55] VITALS: Ht 157.5 cm; Wt 69.1 kg
--- NOTE | 2019-06-06 17:42 | NUR ---
PATIENT MORE ALERT THAT YESTERDAY, AMBULATING WITH ASSISTANCE, FEEDING SELF, CONT CONFUSION, APHASIC. MEDS ADMIN PER ORDERS WITH COMPLETE MED COMPLIANCE NOTED. CONT POC DIRECTED.
--- NOTE | 2019-06-06 22:16 | NUR ---
RECEIVED IN PATIENT ROOM. RESTING IN BED WITH EYES OPEN. CALM AND COOPERATIVE WITH CARE AND ASSESSMENT. CONFUSED. ATTEMPTING TO GET UP WITHOUT ASSISTANCE. REDIRECT AND REORIENT NEEDED. RESTING IN BED WITH EYES CLOSED AT THIS TIME. CONTINUE PLAN OF CARE.
[2019-06-07 00:03] VITALS: BP 140/70
--- NOTE | 2019-06-07 07:30 | NUR ---
REC'D PT IN RECLINING CHAIR BY NURSES STATION. AWAKE AND ALERT TO PERSON ONLY. CALM AND COOPERATIVE WITH ASSESSMENT. PRESCRIBED MEDS PROVIDED ORDERED. MED COMPLIANT. NO BEHAVIORS NOTED AT THIS TIME. REDIRECT AND REORIENT NEEDED. FALL PRECAUTIONS IN PLACE. WILL CPOC.
[2019-06-07 08:10] LABS: RAPID PLASMA REAGIN Non Reactive (Non Reactive)
[2019-06-07 08:24] VITALS: BP 149/56
--- NOTE | 2019-06-07 15:36 | HP ---
PATIENT: OLIVER CARBONE MEDICAL RECORD: [id number] ACCOUNT: [id number] LOCATION:ARIANE Crawford0 : [birth year] ADMISSION DATE: 06/04/19 PCP: SANJU WYLIE MD HISTORY AND PHYSICAL EXAMINATION IDENTIFYING DATA: The patient is 78 years old and she is admitted to the hospital on a voluntary basis. CHIEF COMPLAINT: Agitation. HISTORY OF PRESENT ILLNESS: The patient was recently admitted to the hospital secondary to cholelithiasis. She lives in a mcc in [place], [place] and was transferred here for a higher level of care. The patient has dementia. Her procedure went well, but she had some postoperative confusion and agitation. More accurately she had a worsening of her pre-existing confusion and some agitation. She could not be transferred back to the mcc because of her behaviors and was having to be managed in a Bridget bed on the medical floor. I saw her in consultation and determined that she could be best managed on the behavioral unit. PAST MEDICAL HISTORY: Significant for cholelithiasis, pancreatitis, non-Hodgkin's lymphoma, and hypertension. PAST PSYCHIATRIC HISTORY: Significant for an existing diagnosis of dementia, but I do not have details about when or how or where that diagnosis was made. FAMILY HISTORY: Unobtainable. ALLERGIES: ASPIRIN. MEDICATIONS: Please see the admission MAR. SOCIAL HISTORY: The patient is and has no children. She lives in a mcc. She has an advanced dementia. She denies any history of drug or alcohol abuse and is unable to tell me about her previous level of functioning. MENTAL STATUS EXAMINATION: The patient is awake, alert and oriented to person only. Her mood is anxious. Her affect is constricted. Thought processes are circumstantial. Memory, concentration, and abstraction abilities are impaired severely. She denies thoughts of harming herself or others. She denies psychotic symptoms, which I do not observe, but I do not think she understood the question. ASSESSMENT: AXIS I: Advanced major neurocognitive disorder of the Alzheimer's type with behavioral disturbances. AXIS II: None. AXIS III: Cholelithiasis, pancreatitis, non-Hodgkin's lymphoma, hypertension. AXIS IV: Moderate. AXIS V: Global Assessment Of Functioning is 25. PLAN: At this time, the patient is admitted to the hospital secondary to agitated behavior associated with the recent surgical procedure and dementing illness. She will be treated with both mood stabilizing and memory-enhancing medications. Her long-term prognosis is guarded. HISTORY AND PHYSICAL [id number] OLIVER CARBONE TRANSINT:[id number] Voice Confirmation ID: [id number] DOCUMENT ID: [id number] TIFF DESAI MD at 1536 CC: [id number] DICTATION DATE: 06/06/192047 MEDICAL DATA ANALYST: 06/06/192125 ADM IN [place] [address] [place] [id number]
[2019-06-07 20:48] VITALS: BP 156/55
--- NOTE | 2019-06-07 20:57 | NUR ---
RECEIVED IN PATIENT ROOM. GETTING READY FOR BED. CALM AND COOPERATIVE WITH CARE AND ASSESSMENT. CONFUSED. REDIRECT AND REORIENT NEEDED. RESTING IN BED WITH EYES OPEN AT THIS TIME. CONTINUE PLAN OF CARE.
[2019-06-08 07:00] VITALS: BP 121/76
--- NOTE | 2019-06-08 09:56 | NUR ---
PT SITTING WATCHING T.V. NO ACUTE DISTRESS NOTED. NO BEHAVIORS NOTED THUS FAR. PT IS IN W/C CAN WALK WITH 1X ASSISTANCE. PT COMPLIANT WITH MEDS, VITALS AND ASSESSMENTS. DENIES ANY PAIN. ALERT TO SELF ONLY WITH SOME CONFUSION NOTED. CHAIR ALARM IN PLACE AND ACTIVE. WILL CONT PLAN OF CARE.
--- NOTE | 2019-06-08 13:13 | NUR ---
Nutrtion Follow-up: Diet: Regular PO intake: ~52% average x last 9 meals Last BM: 06/06/19. Wt: 159# (06/06/19); Admit wt: 165# (06/04/19) Meds reviewed, no new labs, nursing skin assessment reviewed. Continue current diet. Will add Ensure TID with meals d/t PO intake marginal at this time. Encourage PO intake. RD Following.
--- NOTE | 2019-06-08 13:45 | PN ---
PATIENT:OLIVER CARBONE MEDICAL RECORD: [id number] LOCATION:ARIANE Orellana112 ADMISSION DATE: 06/04/19 PROGRESS NOTE DATE OF SERVICE: 06/07/2019 SUBJECTIVE: The patient's case was discussed with staff. She has no new complaint. OBJECTIVE: The patient is profoundly impaired. She is only oriented to person and event that orientation is intermittent. She answers a few yes or no questions and seems almost random manner in which she answers and then she just stays off into some meaning less rambling. ASSESSMENT: Dementia. PLAN: This patient is at a very late stage of dementia. I think there is virtually no benefit to treating her with a cholinesterase inhibitor. I am going to give her one with the hopes that at least perhaps it will help her become oriented to person more of the time. Her behaviors have improved and in fact she is actually quite pleasant. She wants to hold my hand and wants to kiss the back of it. I do not think she really understand anything I am saying to her. I think she [facility] be [facility]. TRANSINT:[id number] Voice Confirmation ID: [id number] DOCUMENT ID: [id number] TIFF DEASI MD at 1345 CC: [id number] DICTATION DATE: 06/07/191924 STEEL ROD BUSTER: 06/07/192122 ADM IN [facility] [address] [place] [address]
--- NOTE | 2019-06-08 20:10 | NUR ---
RECEIVED IN HALLWAY OUTSIDE OF NURSES STATION. SITTING WITH PEERS BY HER SIDE. CALM AND COOPERATIVE WITH CARE AND ASSESSMENT. CONFUSED. REDIRECT AND REORIENT NEEDED. RESTING IN BED WITH EYES OPEN AT THIS TIME. CONTINUE PLAN OF CARE.
[2019-06-08 22:59] VITALS: BP 127/48
[2019-06-09 08:00] VITALS: BP 112/64
--- NOTE | 2019-06-09 08:55 | PN ---
PATIENT:OLIVER CARBONE MEDICAL RECORD: [id number] LOCATION:ARIANE Crawford ADMISSION DATE: 06/04/19 PROGRESS NOTE DATE OF SERVICE: 06/08/2019 SUBJECTIVE: The patient's case was discussed with staff. She has no new complaint. OBJECTIVE: The patient is in good behavioral control with limited insight about her situation. She is sleeping and eating reasonably well. She does have a little underlying anxiety that I can see escalating if not addressed. ASSESSMENT: Dementia. PLAN: I am going to treat the patient with a low dose of Xanax. Her long-term prognosis is guarded. TRANSINT:[id number] Voice Confirmation ID: [id number] DOCUMENT ID: [id number] TIFF DESAI MD at 0855 CC: [id number] DICTATION DATE: 06/08/19 1600 TOOL SMITH: 06/08/192005 ADM IN [facility] [address] [place] [address]
--- NOTE | 2019-06-09 10:20 | NUR ---
PATIENT SITTING WITH PEERS SOCIALIZING. NO DISTRESS NOTED. RESP EVEN AND NONLBAORED. PT ORIENTED TO SELF ONLY. CONFUSED. REDIRECT AND REORIENTED NEEDED. PT COMPLIANT WITH MEDS, ASSESSMENTS, AND VITALS. ASSIST WITH TRANFERS AND TOILETING. CHAIR ALARM IN PLACE AND ACTIVE. WILL CONT PLAN OF CARE.
--- NOTE | 2019-06-09 11:26 | NUR ---
PATIENT ATTEMPTED TO TRANSFER PER SELF. ALARM SOUNDED. NURSE 2X ASSISTED PT INTO CHAIR AND RECLINED FEET.
--- NOTE | 2019-06-09 20:06 | NUR ---
RECEIVED IN DAYROOM. SITTING IN A WHEELCHAIR WITH PEERS AT HER SIDE. CALM AND COOPERATIVE WITH CARE AND ASSESSMENT. ATTEMPTS TO STAND WITHOUT ASSIST. FIORDALIZA ALARM SOUNDING. REDIRECT AND REORIENT NEEDED. SITTING IN HALLWAY OUTSIDE OF NURSES STATION. CONTINUES TO ATTEMT TO STAND WITHOUT ASSIST. CONTINUE PLAN OF CARE
[2019-06-09 22:47] VITALS: BP 159/37
--- NOTE | 2019-06-10 10:36 | NUR ---
B) The patient is awake and alert she is pleasant. She has poor insight into her situation. She has poor balance and she is in a w/c. She is calm. I) Provide prescribed meds. R) The patient is compliant with meds. P) Continue POC.
[2019-06-10 15:21] VITALS: BP 154/70
--- NOTE | 2019-06-10 16:06 | PN ---
PATIENT:OLIVER CARBONE MEDICAL RECORD: [id number] LOCATION:ARIANE Crawford ADMISSION DATE: 06/04/19 PROGRESS NOTE DATE OF SERVICE: 06/09/2019 SUBJECTIVE: The patient's case was discussed with staff. She has no new complaint. OBJECTIVE: The patient denies intent to harm herself or others. She is confused. ASSESSMENT: Dementia. PLAN: Current medicines have been reviewed and will be maintained. TRANSINT:[id number] Voice Confirmation ID: [id number] DOCUMENT ID: [id number] TIFF DESAI MD at 1606 CC: [id number] DICTATION DATE: 06/09/19 1025 BUILDING REPAIR MAINTENANCE SUPERVISOR: 06/09/19 1042 ADM IN [place] [address] [place] [address]
[2019-06-10 19:23] LABS: CALCIUM 8.9 mg/dL (8.5-10.1); CREATININE - SERUM 0.8 mg/dL (0.6-1.3); MAGNESIUM - SERUM 1.7 mg/dL (1.8-2.4)
[2019-06-10 20:23] VITALS: BP 119/48
--- NOTE | 2019-06-11 02:56 | NUR ---
REC'D PATIENT SITTING IN A WC IN THE DAYROOM. CONFUSED. NO INTERACTION WITH PEERS. STAYS TO HERSELF. ADMINISTER MEDS AND MONITOR COMPLIANCE. REORIENT NEEDED. MED COMPLIANT. POOR REORIENTAION DUE IMPAIRED ABILITY TO PROCESS AND RETAIN INFORMATION. CONTINUE POC AND PROVIDE SAFE ENVIRONMENT.
[2019-06-11 08:26] VITALS: BP 120/53
--- NOTE | 2019-06-11 11:48 | PN ---
PATIENT:OLIVER CARBONE MEDICAL RECORD: [id number] LOCATION:ARIANE Crawford ADMISSION DATE: 06/04/19 PROGRESS NOTE DATE OF SERVICE: 06/10/2019 SUBJECTIVE: The patient's case was discussed with staff. She has no new complaint. OBJECTIVE: The patient has been in good behavioral control. She has no behavior outbursts. She is severely impaired cognitively. I think that she is slightly over sedated even with this very low dose of Xanax. I am going to reduce it to just a quarter of a mg at bedtime. TRANSINT:[id number] Voice Confirmation ID: [id number] DOCUMENT ID: [id number] TIFF DESAI MD at 1148 CC: [id number] DICTATION DATE: 06/10/19 1624 BOLT HEADER: 06/10/19 1939 ADM IN [facility] [address] [place] [id number]
[2019-06-11 20:00] VITALS: BP 146/48
--- NOTE | 2019-06-11 21:10 | NUR ---
PATIENT IN DAYROOM, CONFUSED, GOOD AFFECT, SMILIES WHEN SPOKEN TO, COMPLIANT WITH MEDS, DOES NOT MAKE NEEDS KNOWN. NO ADVERSE REACTION NOTED TO MEDS. WILL FOLLOW POC
--- NOTE | 2019-06-11 23:01 | NUR ---
REC'D PATEINT SITTING IN A WHEELCHAIR IN THE DAYROOM. SITS TO HERSELF AND DOES NOT INTERACT WITH PEERS. APPROPRIATE WHEN APPROACHED BY STAFF. CONFUSED. ADMINISTER MEDS AND MONITOR COMPLIANCE. REORIENT NEEDED. MED COMPLIANT. POOR REORIENTATION DUE TO IMPAIRED ABILTIY TO PROCESS AND RETAIN INFORMATION.
[2019-06-12 10:36] VITALS: BP 140/82
--- NOTE | 2019-06-12 13:21 | PN ---
PATIENT:OLIVER CARBONE MEDICAL RECORD: [id number] LOCATION:ARIANE Crawford ADMISSION DATE: 06/04/19 PROGRESS NOTE DATE OF SERVICE: 06/11/2019 SUBJECTIVE: The patient's case was discussed with staff. She has no new complaint. OBJECTIVE: The patient is in good behavioral control. She has poor insight about her condition. She is only oriented to person, but her mood is euthymic and she has not been aggressive. ASSESSMENT: Dementia. PLAN: The patient will be maintained on current medicines. I anticipate [facility] the [facility]. TRANSINT:[id number] Voice Confirmation ID: [id number] DOCUMENT ID: [id number] TIFF DESAI MD at 1321 CC: [id number] DICTATION DATE: 06/11/19 1150 MILLING MACHINE SET UP OPERATOR: 06/11/19 1243 ADM IN [facility] [address] [place] [address]
[2019-06-12] MEDS ORDERED: NAMENDA5 MG PO (13:25)
[2019-06-12] MEDS ORDERED: VITAMIN D250000 UNIT PO (13:25)
--- NOTE | 2019-06-12 14:11 | NUR ---
PT IS AWAKE AND ALERT TO PERSON ONLY. CALM AND COOPERATIVE WITH ASSESSMENT. PRESCRIBED MEDS PROVIDED. MED COMPLIANT. REDIRECT AND REORIENT NEEDED. NO BEHAVIORS NOTED AT THIS TIME. FALL PRECAUTIONS IN PLACE. WILL CPOC.
--- NOTE | 2019-06-12 19:24 | NUR ---
RECEIVED IN HALLWAY OUTSIDE OF NURSES STATION. SOCIALIZING WITH A PEER. CALM AND COOPERATIVE WITH CARE AND ASSESSMENT. REDIRECT AND REORIENT NEEDED. CONTINUES TO SOCIZLIZING WITH A PEER. CONTINUE PLAN OF CARE
--- NOTE | 2019-06-13 08:00 | NUR ---
PT IS AWAKE AND ALERT TO PERSON ONLY. CALM AND COOPERATIVE WITH ASSESSMENT. PRESCRIBED MEDS PROVIDED ORDERED. MED COMPLIANT. REDIRECT AND REORIENT NEEDED. NO BEHAVIORS NOTED AT THIS TIME. FALL PRECAUTIONS IN PLACE. WILL CPOC.
[2019-06-13 08:18] VITALS: BP 121/60
--- NOTE | 2019-06-13 12:29 | PN ---
PATIENT:OLIVER CARBONE MEDICAL RECORD: [id number] LOCATION:ARIANE Crawford ADMISSION DATE: 06/04/19 PROGRESS NOTE DATE OF SERVICE: 06/12/2019 SUBJECTIVE: The patient's case was discussed with staff. She has no new complaint. OBJECTIVE: The patient is severely impaired cognitively but has not been aggressive. She is incontinent of bowel and bladder and even with personal care has not been disruptive. She is only oriented to person and at times, she is not even oriented to person. ASSESSMENT: Dementia. PLAN: The patient can be safely and reasonably transitioned back to the residential tomorrow. Followup will be with her residential physician in [place]. TRANSINT:[id number] Voice Confirmation ID: [id number] DOCUMENT ID: [id number] TIFF DESAI MD at 1229 CC: [id number] DICTATION DATE: 06/12/19 1324 SERVICE DESK ANALYST: 06/12/19 1903 ADM IN [facility] [address] [place] [id number]
--- NOTE | 2019-06-13 19:17 | NUR ---
RECEIVED IN DINING AREA. SITTING IN A CHAIR WITH PEERS AT HER SIDE. CALM AND COOPERATIVE WITH CARE AND ASSESSMENT. REDIRECT AND REORIENT NEEDED. RESTING IN BED WITH EYES CLOSED AT THIS TIME. CONTINUE PLAN OF CARE
[2019-06-13 22:02] VITALS: BP 133/44
[2019-06-14 08:00] VITALS: BP 115/61
--- NOTE | 2019-06-14 11:13 | NUR ---
PT AWAKE AND ALERT TO PERSON ONLY. CALM AND COOPERATIVE WITH ASSESSMENT. PRESCRIBED MEDS PROVIDED ORDERED. MED COMPLIANT. NO BEHAVIORS NOTED AT THIS TIME. REDIRECT AND REORIENT NEEDED. FALL PRECAUTIONS IN PLACE. WILL CPOC.
--- NOTE | 2019-06-14 11:32 | NUR ---
Nutrition Follow-up: Diet: Regular + Ensure TID PO intake: ~50% average x last 9 meals Last BM: 06/13/19 x 2. Wt: 155# (06/12/19); Admit wt: 165# (06/04/19) Meds reviewed. No new labs. Noted -10# wt loss. Possibly fluid? Will continue to monitor. Consider adding appetite stimulant as medically feasible. Continue current nutrition regimen. Encourage PO intake. RD Following.
--- NOTE | 2019-06-14 12:41 | PN ---
PATIENT:OLIVER CARBONE MEDICAL RECORD: [id number] LOCATION:ARIANE Crawford ADMISSION DATE: 06/04/19 PROGRESS NOTE DATE OF SERVICE: 06/13/2019 SUBJECTIVE: The patient's case was discussed with staff. She has no new complaint. OBJECTIVE: The patient is in good behavioral control. She has limited insight about her situation. She is only oriented to person. There are some technical issues with her discharge, particularly [facility] has not given us approval yet and we cannot arrange transportation until that is done. The [facility]'s [facility] is about 2 [facility] from here. I do not anticipate any problems based on this, I am going to cancel today's discharge and will reschedule her for tomorrow. I will keep her on the same medications. TRANSINT:[id number] Voice Confirmation ID: [id number] DOCUMENT ID: [id number] TIFF DESAI MD at 1241 CC: [id number] DICTATION DATE: 06/13/19 1300 TERRAZZO SUPERVISOR: 06/13/19 1636 ADM IN [facility] [address] [place] [id number]
--- NOTE | 2019-06-14 19:41 | NUR ---
RECEIVED IN DAYROOM. SITTING IN A CHAIR WITH PEERS BY HER SIDE. CALM AND COOPERATIVE WITH CARE AND ASSESSMENT. ENCOURAGE TO EXPRESS NEEDS. CONTINUES TO SIT CALMLY. CONTINUE PLAN OF CARE
[2019-06-14 22:55] VITALS: BP 139/42
[2019-06-15 06:29] LABS: CALCIUM 8.9 mg/dL (8.5-10.1); CARBON DIOXIDE 31.5 mmol/L (21.0-32.0); CREATININE - SERUM 0.8 mg/dL (0.6-1.3); POTASSIUM - SERUM 3.5 mmol/L (3.5-5.1)
[2019-06-15 08:00] VITALS: BP 123/60
--- NOTE | 2019-06-15 14:10 | NUR ---
DISCHARGED TO [facility]. REPORT CALLED TO TIMO.
--- NOTE | 2019-06-15 15:58 | PN ---
PATIENT:OLIVER CARBONE MEDICAL RECORD: [id number] LOCATION:ARIANE Crawford ADMISSION DATE: 06/04/19 PROGRESS NOTE DATE OF SERVICE: 06/14/2019 SUBJECTIVE: The patient's case was discussed with staff. She has no new complaint. OBJECTIVE: The patient is in good behavioral control. She has limited insight about her situation. ASSESSMENT: Dementia. PLAN: The patient has no evidence of acute or direct dangerousness. She will be transitioned back to the shelter today. TRANSINT:[id number] Voice Confirmation ID: [id number] DOCUMENT ID: [id number] TIFF DESAI MD at 1558 CC: [id number] DICTATION DATE: 06/14/19 1250 CASH APPLICATIONS COORDINATOR: 06/14/19 1416 ADM IN [place] [id number] [place] [address]
--- NOTE | 2019-06-16 14:34 | PN ---
PATIENT:OLIVER CARBONE MEDICAL RECORD: [id number] LOCATION:[facility] ADMISSION DATE: 06/04/19 PROGRESS NOTE DATE OF SERVICE: 06/15/2019 SUBJECTIVE: The patient's case was discussed with staff. She has no new complaint. OBJECTIVE: The patient is in good behavioral control. She is only oriented to person. She has not been aggressive or disruptive. ASSESSMENT: No change in diagnoses. PLAN: Supportive and educational interventions were made. Long-term prognosis is guarded. The patient will be discharged from the hospital today. She is going to return to the correction in [place]. TRANSINT:[id number] Voice Confirmation ID: [id number] DOCUMENT ID: [id number] TIFF DESAI MD at [id number] CC: [id number] DICTATION DATE: 06/15/19 1600 NIGHTMAN: 06/15/19 2246 DIS IN 06/15/19 [place] [id number] [place] [address]
== END 2019-06-15 14:10 | DRG 56 ==
LOC: D.PSYCH 14:06
PROVIDERS: Family Medicine; ADMIT Psychiatry & Neurology Psychiatry; ATTEND Psychiatry & Neurology Psychiatry
DX: G30.9 Alzheimer's disease, unspecified (principal); K85.90 Acute pancreatitis without necrosis or infection, unspecified; F02.81 Dementia in other diseases classified elsewhere, unspecified severity, with behavioral disturbance; C85.90 Non-Hodgkin lymphoma, unspecified, unspecified site; N39.0 Urinary tract infection, site not specified; K80.20 Calculus of gallbladder without cholecystitis without obstruction; I10 Essential (primary) hypertension; I25.10 Atherosclerotic heart disease of native coronary artery without angina pectoris; D64.9 Anemia, unspecified; E87.6 Hypokalemia; E55.9 Vitamin D deficiency, unspecified; K59.04 Chronic idiopathic constipation; E83.42 Hypomagnesemia